=== PATIENT | male | born 1970 | race African-American/Black ===

== ENCOUNTER 2018-06-15 13:16 | Emergency (ER) | payer SELFPAY ==
--- NOTE | 2018-06-15 13:49 | ER Document Report ---
ED Medical Screen (RME) - General Chief Complaint: Nausea/Vomiting Stated Complaint: DETOX Time Seen by Provider: 06/15/18 13:47 TRAVEL OUTSIDE OF THE [place] IN LAST 30 DAYS: No - HPI Notes: 06/15/18 13:47 Patient is a 48-year-old male with a history of insulin-dependent diabetes, chronic opioid abuse, IV drug abuse, and hypertension who presents requesting for detox from chronic opioid use. Patient states that his last intake was Percocet was 2 days ago and he has been on it for 9 years. Patient states that he does use cocaine every now again with the last being 3 days ago. Patient states that he has had nausea, vomiting, loose stool, and feeling shaky. He has had decreased p.o. intake. He is otherwise urinating normally. Denies MARTIN, fever, neck pain, URI, CP, SOB, or rash. I have treated and performed a rapid initial assessment of this patient. A comprehensive ED assessment and evaluation of the patient, analysis of test results and completion of medical decision making process will be conducted by additional ED providers. PHYSICAL EXAMINATION: GENERAL: Well-appearing, well-nourished and in no acute distress. A&Ox4. Answers questions appropriately. LUNGS: Breath sounds clear to auscultation bilaterally and equal. No wheezes rales or rhonchi. HEART: Regular rate and rhythm without murmurs, rubs, gallops. Extremities: No cyanosis, clubbing, or edema b/l. NEUROLOGICAL: Normal speech, normal gait. Cranial nerves grossly intact. PSYCH: Normal mood, normal affect. - Related Data Allergies/Adverse Reactions: prednisone Allergy (Verified 06/15/18 13:18) Swelling of tongue Physical Exam - Vital signs Vitals: Temp Pulse Resp BP Pulse Ox 98.6 F 92 15 200/115 H 97 06/15/18 13:28 06/15/18 13:28 06/15/18 13:28 06/15/18 13:28 06/15/18 13:28 Course - Vital Signs Vital signs: Temp Pulse Resp BP Pulse Ox 98.6 F 92 15 200/115 H 97 06/15/18 13:28 06/15/18 13:28 06/15/18 13:28 06/15/18 13:28 06/15/18 13:28
[2018-06-15] MEDS ORDERED: LORAZEPAM INJ 2 MG/1 ML VIAL IV ONE (13:52)
[2018-06-15] MEDS ORDERED: ONDANSETRON HCL INJ/PF 4 MG/2 ML SDV IV ONE (13:52)
[2018-06-15] MEDS ORDERED: NORMAL SALINE 1000 ML 1,000 ML IV PRN (13:52)
[2018-06-15 15:19] LABS: ALANINE AMINOTRANSFERASE 29 U/L (21-72); ALBUMIN 3.8 g/dL (3.5-5.0); ALKALINE PHOSPHATASE 81 U/L (38-126); ANION GAP 10 (5-19); ASPARTATE AMINO TRANSFERASE 24 U/L (17-59); BILIRUBIN,DIRECT 0.4 mg/dL (0.0-0.4); BILIRUBIN,TOTAL 0.6 mg/dL (0.2-1.3); BLOOD UREA NITROGEN 21 mg/dL (7-20); CALCIUM 9.7 mg/dL (8.4-10.2); CARBON DIOXIDE 24 mmol/L (22-30); CHLORIDE 105 mmol/L (98-107); GLUCOSE 240 mg/dL (75-110); LIPASE 59.4 U/L (23-300); POTASSIUM 3.8 mmol/L (3.6-5.0); SODIUM 139.2 mmol/L (137-145); TOTAL PROTEIN 7.1 g/dL (6.3-8.2)
[2018-06-15 17:22] LABS: URINE AMPHETAMINES SCREEN NEGATIVE; URINE BARBITURATES SCREEN NEGATIVE; URINE BENZODIAZEPINES SCREEN NEGATIVE; URINE COCAINE SCREEN UNCONFIRMED POSITIVE; URINE MARIJUANA (THC) SCREEN UNCONFIRMED POSITIVE; URINE METHADONE SCREEN NEGATIVE; URINE PHENCYCLIDINE SCREEN NEGATIVE
[2018-06-15 17:47] LABS: APPEARANCE,URINE TURBID; BILIRUBIN,URINE NEGATIVE (NEGATIVE); GLUCOSE, URINE >=500 mg/dL (NEGATIVE); KETONES,URINE NEGATIVE (NEGATIVE); LEUKOCYTE ESTERASE,URINE NEGATIVE (NEGATIVE); NITRITE,URINE NEGATIVE (NEGATIVE); PROTEIN,URINE >=500 mg/dL (NEGATIVE); URINE SPECIFIC GRAVITY 1.031; UROBILINOGEN,URINE NEGATIVE mg/dL (<2.0)
[2018-06-15 17:48] LABS: COLOR,URINE YELLOW
[2018-06-15] MEDS ORDERED: BUPRENORPHINE HCL 2 MG SUBLINGUAL TABLET SL ONE ×2 (19:33→19:34)
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
[2018-06-15 20:15] VITALS: BP 226/142
--- NOTE | 2018-06-16 13:09 | EKG REPORT ---
SEVERITY:- ABNORMAL ECG - SINUS RHYTHM OPAL, CONSIDER BIATRIAL ABNORMALITIES NONSPECIFIC T ABNORMALITIES, LATERAL LEADS BORDERLINE PROLONGED QT INTERVAL : Confirmed by: Daiana Juárez 16-Jun-2018 13:08:43
== END 2018-06-15 20:13 | disposition home or self-care (01) ==
LOC: ER 13:16
DX: F11.23 Opioid dependence with withdrawal (principal); R11.2 Nausea with vomiting, unspecified; I10 Essential (primary) hypertension; J44.9 Chronic obstructive pulmonary disease, unspecified; E11.9 Type 2 diabetes mellitus without complications
CPT/HCPCS: 93005; 99284; 96361; 96374; 96375; 36415; 83690; 80053; 81001; 80307; 93010; J2060; J2405; J7030; J0571

== ENCOUNTER 2019-08-21 22:06 | Emergency (ER) | payer SELFPAY ==
[2019-08-22 00:05] LABS: ABSOLUTE BASOPHILS # (AUTO) 0.1 10^3/uL (0.0-0.2); ABSOLUTE EOSINOPHILS # (AUTO) 0.2 10^3/uL (0.0-0.6); ABSOLUTE LYMPHOCYTES (AUTO) 1.6 10^3/uL (0.5-4.7); ABSOLUTE MONOCYTES (AUTO) 0.6 10^3/uL (0.1-1.4); ABSOLUTE NEUT (AUTO) 4.2 10^3/uL (1.7-8.2); BASOPHILS % (AUTO) 1.4 % (0-2); EOSINOPHILS % (AUTO) 2.5 % (0-6); HEMATOCRIT 42.7 % (37.9-51.0); HEMOGLOBIN 14.3 g/dL (13.5-17.0); LYMPHOCYTES % (AUTO) 23.5 % (13-45); MEAN CORPUSCULAR HEMOGLOBIN 27.4 pg (27.0-33.4); MEAN CORPUSCULAR HGB CONC 33.5 g/dL (32.0-36.0); MEAN CORPUSCULAR VOLUME 82 fl (80-97); MONOCYTES % (AUTO) 9.1 % (3-13); PLATELET COUNT 269 10^3/uL (150-450); RED BLOOD COUNT 5.22 10^6/uL (4.35-5.55); RED CELL DISTRIBUTION WIDTH 15.1 % (11.5-14.0); SEGMENTED NEUTROPHILS % (AUTO) 63.5 % (42-78); TOTAL CELLS COUNTED % (AUTO) 100 %; WHITE BLOOD COUNT 6.7 10^3/uL (4.0-10.5)
[2019-08-22 00:26] LABS: ALBUMIN 3.9 g/dL (3.5-5.0); ALKALINE PHOSPHATASE 62 U/L (38-126); ANION GAP 5 (5-19); ASPARTATE AMINO TRANSFERASE 24 U/L (17-59); BILIRUBIN,TOTAL 0.3 mg/dL (0.2-1.3); BLOOD UREA NITROGEN 25 mg/dL (7-20); CALCIUM 9.2 mg/dL (8.4-10.2); CARBON DIOXIDE 29 mmol/L (22-30); CHLORIDE 103 mmol/L (98-107); GLUCOSE 88 mg/dL (75-110); POTASSIUM 3.5 mmol/L (3.6-5.0); TOTAL PROTEIN 7.3 g/dL (6.3-8.2)
--- NOTE | 2019-08-22 01:56 | ER Document Report ---
ED General - General Chief Complaint: Pain All Over Stated Complaint: FEVER,CHILLS Time Seen by Provider: 08/22/19 00:53 Primary Care Provider: KEL BRAMBILA MD [ACTIVE STAFF] - Follow up as needed GELA CARSON MD [NO LOCAL MD] - Follow up as needed MARY GUIDO MD [Primary Care Provider] - Follow up as needed Mode of Arrival: Ambulatory Information source: Patient TRAVEL OUTSIDE OF THE [place] IN LAST 30 DAYS: No - HPI Onset: Other - over the last several days Onset/Duration: Gradual Quality of pain: Pressure - in his head Severity: Moderate Pain Level: 2 Associated symptoms: Headache, Other - body aches Exacerbated by: Denies Relieved by: Denies Similar symptoms previously: Yes - patient has had uncontrolled BP for months Recently seen / treated by doctor: No Notes: 49 year old male with a history of HTN, DM, prior CVA, COPD here in the ER for high blood pressure, off and on mild throbbing headaches, and body aches. The patient says he is on HCTZ, Carvedilol, Lisinopril, Amlodipine, Clonidine and his blood pressure is still not well controlled. The patient has a PCP but he says he has had trouble getting in to see him as of late. The patient says he royal s been on gabapentin in the past and he would like some gabapentin for his body aches if possible today. - Related Data Allergies/Adverse Reactions: prednisone Allergy (Verified 06/15/18 19:36) Swelling of tongue Past Medical History - General Information source: Patient - Social History Smoking Status: Current Some Day Smoker Frequency of alcohol use: None Drug Abuse: None Family History: Reviewed & Not Pertinent Patient has suicidal ideation: No Patient has homicidal ideation: No - Past Medical History Cardiac Medical History: Reports: Hx Hypertension Pulmonary Medical History: Reports: Hx COPD Endocrine Medical History: Reports: Hx Diabetes Mellitus Type 2 Renal/ Medical History: Denies: Hx Peritoneal Dialysis Past Surgical History: Reports: Hx Cardiac Catheterization - ? pt unsure possible Review of Systems - Review of Systems Constitutional: No symptoms reported EENT: No symptoms reported Cardiovascular: No symptoms reported Respiratory: No symptoms reported Gastrointestinal: No symptoms reported Genitourinary: No symptoms reported Male Genitourinary: No symptoms reported Musculoskeletal: Other - body aches Skin: No symptoms reported Hematologic/Lymphatic: No symptoms reported Neurological/Psychological: Headaches -: Yes All other systems reviewed and negative Physical Exam - Vital signs Vitals: Temp Pulse Resp BP Pulse Ox 98.7 F 85 16 237/139 H 99 08/21/19 22:11 08/21/19 22:11 08/21/19 22:11 08/21/19 22:11 08/21/19 22:11 - Notes Notes: GENERAL: Well-appearing, well-nourished and in no acute distress. HEAD: Atraumatic, normocephalic. EYES: Pupils equal round and reactive to light, extraocular movements intact, sclera anicteric, conjunctiva are normal. ENT: External ears normal, nares patent, oropharynx clear without exudates. Moist mucous membranes. NECK: Normal range of motion, supple without lymphadenopathy or JVD. LUNGS: Breath sounds clear to auscultation bilaterally and equal. No wheezes rales or rhonchi. HEART: Regular rate and rhythm without murmurs, rubs or gallops. ABDOMEN: Soft, nontender, normoactive bowel sounds. No guarding, no rebound. No masses appreciated. EXTREMITIES: Normal range of motion, no pitting or edema. No clubbing or cyanosis. NEUROLOGICAL: Cranial nerves II through XII grossly intact. Normal speech, normal gait. PSYCH: Normal mood, normal affect. SKIN: Warm, Dry, normal turgor, no rashes or lesions noted. Course - Re-evaluation Re-evalutation: 08/22/19 02:20 The patient is here in the ER for high blood pressure, body aches, and mild headaches which area likely from his uncontrolled hypertension. The patient is on 5 different anti-hypertensive agents and his BP is still poorly controlled. Patient treated in the ER with IV Labetolol and oral Gabapentin. Patient told he needs to urgently follow up with a PCP or Picking Table Worker for better management of his hypertension. - Vital Signs Vital signs: Temp Pulse Resp BP Pulse Ox 98.7 F 85 18 181/96 H 98 08/21/19 23:36 08/21/19 22:11 08/22/19 04:16 08/22/19 04:16 08/22/19 04:16 - Laboratory Result Diagrams: 08/21/19 23:54 08/21/19 23:54 Laboratory results interpreted by me: 08/21/19 08/21/19 23:54 23:54 RDW 15.1 H Potassium 3.5 L BUN 25 H Creatinine 2.18 H Est GFR ( Amer) 39 L Est GFR (MDRD) Non-Af 32 L Discharge - Discharge Clinical Impression: Hypertension Qualifiers: Hypertension type: essential hypertension Qualified Code(s): I10 - Essential (primary) hypertension Headache Qualifiers: Headache type: unspecified Headache chronicity pattern: unspecified pattern Intractability: not intractable Qualified Code(s): R51 - Headache Condition: Stable Disposition: HOME, SELF-CARE Instructions: High Blood Pressure ([facility]), High Blood Pressure, Requiring Treatment ([facility]) Additional Instructions: Continue taking your blood pressure medications. Follow up with a primary care doctor or a Picking Table Worker as soon as possible for help managing your uncontrolled hypertension. If you need a primary care doctor or Picking Table Worker, several are listed in your discharge paperwork. Uncontrolled hypertension can lead to strokes, heart attack, heart failure, kidney failure and many other health problems. Referrals: MARY GUIDO MD [Primary Care Provider] - Follow up as needed GELA CARSON MD [NO LOCAL MD] - Follow up as needed KEL BRAMBILA MD [ACTIVE STAFF] - Follow up as needed
[2019-08-22] MEDS ORDERED: LABETALOL HCL INJ 20 MG/4 ML DISP.SYRIN IV ONE (02:08)
[2019-08-22] MEDS ORDERED: GABAPENTIN 300 MG CAPSULE PO ONE (02:11)
[2019-08-22] MEDS ORDERED: HYDRALAZINE HCL INJ/PF 20 MG/1 ML SDV IV ONE (04:12)
[2019-08-22 04:35] VITALS: BP 180/94
== END 2019-08-22 05:16 | disposition home or self-care (01) ==
LOC: ER 22:06
DX: I10 Essential (primary) hypertension (principal); R51 Headache; E11.9 Type 2 diabetes mellitus without complications; F17.200 Nicotine dependence, unspecified, uncomplicated; J44.9 Chronic obstructive pulmonary disease, unspecified; Z79.899 Other long term (current) drug therapy; Z88.8 Allergy status to other drugs, medicaments and biological substances
CPT/HCPCS: 99283; 96374; 36415; 85025; 80053; J3490